=== PATIENT | male | born 1935 | race Caucasian/White ===

== ENCOUNTER 2018-03-24 23:35 | Emergency (ER) | payer MEDICARE ==
[2018-03-25 00:31] VITALS: O2SAT 98
--- NOTE | 2018-03-25 00:39 | ERPHSYRPT ---
- History of Present Illness Time Seen by Provider: 03/24/18 23:45 Source: patient, family Patient Subjective Stated Complaint: pt is alert and oriented. pt is ambulatory with a steady gait. pt comes in with c/o coughing up blood. pt was just at [facility] ER for blood work per Dr. Dickerson. pt states that on his way home from [facility] he began coughing up blood. pt lung sounds are coarse and crackley in bases posterior bilat. middle lobe crackly and coarse posterior right side. pt upper lobes coarse. pt is on 3L O2 NC at all times. Triage Nursing Assessment: see above Physician History: 82 y/o white male presents h/o oxygen dependent copd with 3 episodes of small hemoptysis this pm. just prior to this evaluation and prior to the hemoptysis, pt was at [facility] obtaining outpt cxr, cbc, and cmp. pt left there, went to eat then went home when he had two episodes of small hemoptysis. i reviewed the pts lab work and cxr from [facility]. no sig abnormalities. pt started on both metoprolol and xarelto 3 days ago. pt denies cp, he denies abd pain and his soa is no diff than usual. pt is 97-98 % o2 sat on his usual 3 liters nc. Timing/Duration: today Cough Quality/Degree: mild, blood streaked sputum Possible Cause: unknown cause (possible new med xarelto) Associated Symptoms: denies symptoms, No fever, No chills, No chest pain/ soreness, No cough, No dizziness, No earache, No facial pain, No headache, No lightheadedness, No muscle aches, No nasal congestion, No nasal drainage, No shortness of breath, No sinus infection, No sore throat, No wheezing Allergies/Adverse Reactions: No Known Drug Allergies Allergy (Unverified 03/25/18 00:39) Home Medications: Albuterol 2.5 mg/3 ml Neb [Proventil 2.5 mg/3 ml Neb] 2.5 mg IH BID [History] Alprazolam [Xanax] 0.5 mg PO HS 03/25/18 [History] Aspirin EC 81 mg [Ecotrin 81 mg] 81 mg PO DAILY 03/25/18 [History] Budesonide/Formoterol Fumarate [Symbicort 160-4.5 Mcg Inhaler] 10.2 gm IH DAILY 03/25/18 [History] Bumetanide 2 mg PO DAILY 03/25/18 [History] Buspirone HCl [Buspar] 10 mg PO BID 03/25/18 [History] Cilostazol 100 mg [Pletal 100 MG] 100 mg PO DAILY 03/25/18 [History] Famotidine 20 mg [Pepcid 20 MG] 20 mg PO HS 03/25/18 [History] Finasteride 5 mg [Proscar 5 MG] 5 mg PO HS 03/25/18 [History] Losartan Potassium 50 mg [Cozaar 50 MG] 20 mg PO HS 03/25/18 [History] Metoprolol Succinate 50 mg PO HS 03/25/18 [History] [place]-3/Dha/Epa/Fish Oil [Fish Oil 1,000 mg Softgel] 1,000 mg PO HS 03/25/18 [ History] Potassium Chloride [Klor-Con 10] 10 meq PO DAILY 03/25/18 [History] Pravastatin Sodium 40 mg PO HS 03/25/18 [History] Pyridoxine HCl 100 mg [Vitamin B-6 (Pyridoxine) 100 MG] 100 mg PO DAILY [History] Rivaroxaban [Xarelto] 10 mg PO DAILY 03/25/18 [History] Tamsulosin HCl 0.4 mg [Flomax 0.4 MG] 0.4 mg PO HS 03/25/18 [History] Immunizations Up to Date: Yes - Review of Systems Constitutional: No Symptoms, No Fever, No Chills Eyes: No Symptoms Ears, Nose, & Throat: No Symptoms Respiratory: Other (hemoptysis), No Dyspnea, No Stridor, No Wheezing Cardiac: No Symptoms, No Chest Pain, No Palpitations, No Syncope Abdominal/Gastrointestinal: No Symptoms, No Abdominal Pain, No Nausea, No Vomiting, No Diarrhea Genitourinary Symptoms: No Symptoms, No Frequency, No Hematuria Musculoskeletal: No No Symptoms Skin: No Symptoms Neurological: No Symptoms Psychological: No Symptoms Endocrine: No Symptoms Hematologic/Lymphatic: No Symptoms Immunological/Allergic: No Symptoms All Other Systems: Reviewed and Negative - Past Medical History Pertinent Past Medical History: Yes Neurological History: Stroke ENT History: No Pertinent History Cardiac History: Myocardial Infarction ([place]) Respiratory History: COPD Endocrine Medical History: No Pertinent History Musculoskeletal History: No Pertinent History GI Medical History: No Pertinent History History: No Pertinent History Psycho-Social History: No Pertinent History Male Reproductive Disorders: No Pertinent History - Past Surgical History Past Surgical History: Yes Neuro Surgical History: No Pertinent History Cardiac: Cardiac Catheterization, Cardiac Stent Respiratory: No Pertinent History Gastrointestinal: Other Genitourinary: No Pertinent History Musculoskeletal: No Pertinent History Male Surgical History: No Pertinent History Other Surgical History: 5 stents, and hemorrhoidectomy. - Social History Smoking Status: Former smoker Drug Use: none - Nursing Vital Signs Nursing Vital Signs: Initial Vital Signs Temperature 97.7 F 03/24/18 23:36 Pulse Rate 76 03/24/18 23:36 Respiratory Rate 24 03/24/18 23:36 Blood Pressure 158/99 03/24/18 23:36 O2 Sat by Pulse Oximetry 93 L 03/24/18 23:36 Pain Scale Pain Intensity 0 - Physical Exam General Appearance: no apparent distress, alert, anxiety Eye Exam: PERRL/EOMI, eyes nml inspection Ears, Nose, Throat Exam: normal ENT inspection, moist mucous membranes Neck Exam: normal inspection, non-tender, supple, full range of motion Respiratory Exam: normal breath sounds, lungs clear, airway intact, No chest tenderness, No respiratory distress, No diminished breath sounds, No accessory muscle use, No rhonchi, No wheezing, No stridor Cardiovascular Exam: regular rate/rhythm, normal heart sounds, normal peripheral pulses Gastrointestinal/Abdomen Exam: soft, normal bowel sounds, No tenderness, No guarding, No rebound Rectal Exam: not done Back Exam: normal inspection, normal range of motion, No CVA tenderness, No vertebral tenderness Extremity Exam: normal inspection, normal range of motion, pelvis stable Neurologic Exam: alert, oriented x 3, cooperative, penology teacher II-XII nml as tested SpO2: 98 Oxygen Delivery: Nasal Cannula - Course Nursing assessment & vital signs reviewed: Yes Ordered Tests: Active Orders 24 hr Category Date Time Status Orthostatic Vital Signs STAT Care 03/25/18 00:40 Active CBC W DIFF Stat Lab 03/25/18 00:50 Completed PT INR [PROTIME WITH INR] Stat Lab 03/25/18 00:50 Received Lab/Rad Data: Laboratory Result Diagrams 03/25/18 00:50 Laboratory Results 03/25/18 Range/Units 00:50 WBC 6.9 (4.0-10.5) K/mm3 RBC 3.95 L (4.1-5.6) M/mm3 Hgb 13.3 (12.5-18.0) gm/dl Hct 39.4 L (42-50) % MCV 99.7 (78-100) fl MCH 33.6 H (26-32) pg MCHC 33.8 (32-36) g/dl RDW 14.2 H (11.5-14.0) % Plt Count 86 L (150-450) K/mm3 MPV 10.4 H (6-9.5) fl Gran % 75.5 H (36.0-66.0) % Eos # (Auto) 0.31 (0-0.5) Absolute Lymphs (auto) 0.88 L (1.0-4.6) Absolute Monos (auto) 0.49 (0.0-1.3) Lymphocytes % 12.8 L (24.0-44.0) % Monocytes % 7.1 (0.0-12.0) % Eosinophils % 4.5 (0.00-5.0) % Basophils % 0.1 (0.0-0.4) % Absolute Granulocytes 5.20 (1.4-6.9) Basophils # 0.01 (0-0.4) - Progress Progress: re-examined, unchanged Air Movement: good Blood Culture(s) Obtained: No Antibiotics given: No Counseled pt/family regarding: lab results, diagnosis, need for follow-up - Departure Time of Disposition: 01:11 Departure Disposition: Home Clinical Impression: Hemoptysis, unspecified Condition: Stable Critical Care Time: No Referrals: YESSICA GUAMAN MD [Primary Care Provider] - Additional Instructions: stop xarelto and metoprolol. call your [facility] surgeon this morning for further instructions on when/if to begin xarelto and metoprolol
[2018-03-25 00:56] LABS: BASOPHIL % 0.1 % (0.0-0.4); Basophil (Absolute #) 0.01 (0-0.4); Eosinophil % 4.5 % (0.00-5.0); Eosinophil (Absolute #) 0.31 (0-0.5); Granulocytes % 75.5 % (36.0-66.0); Hematocrit 39.4 % (42-50); Hemoglobin 13.3 gm/dl (12.5-18.0); Lymphocyte (Absolute #) 0.88 (1.0-4.6); Lymphocytes % 12.8 % (24.0-44.0); Mean Cell Volume 99.7 fl (78-100); Mean Corpuscular Hemoglobin 33.6 pg (26-32); Mean Corpuscular Hgb Concent. 33.8 g/dl (32-36); Mean Platelet Volume 10.4 fl (6-9.5); Monocyte (Absolute #) 0.49 (0.0-1.3); Monocytes % 7.1 % (0.0-12.0); Platelet Count 86 K/mm3 (150-450); Red Blood Count 3.95 M/mm3 (4.1-5.6); Red Cell Distribution Width 14.2 % (11.5-14.0); White Blood Count 6.9 K/mm3 (4.0-10.5)
[2018-03-25 01:04] LABS: INR 1.38 (0.8-3.0)
[2018-03-25 01:08] VITALS: BP 150/103; PULSE 81
[2018-03-25 04:31] LABS: Slide Review 1 YES
== END 2018-03-25 01:15 | disposition home or self-care (01) ==
LOC: ED 23:35
DX: R04.2 Hemoptysis (principal); J44.9 Chronic obstructive pulmonary disease, unspecified; Z99.81 Dependence on supplemental oxygen; Z79.899 Other long term (current) drug therapy
CPT/HCPCS: 36415; 85025; 85610; 93005; 93041; 99284

== ENCOUNTER 2019-01-05 12:42 | Emergency (ER) | payer MEDICARE ==
[2019-01-05] MEDS ORDERED: Sodium Chloride 0.9% 1000 ML 1,000 ML IV SCH (13:15)
[2019-01-05] MEDS ORDERED: Sodium Chloride 0.9% 1000 ML 1,000 ML ONE (13:18)
--- NOTE | 2019-01-05 13:37 | ERPHSYRPT ---
- History of Present Illness Time Seen by Provider: 01/05/19 13:00 Source: patient Exam Limitations: clinical condition Patient Subjective Stated Complaint: states felt dizzy and passed out yesterday at 1530 at home in the kitchen. states she immediatley went to him and he was awake and was able to get up from floor. had abrasion to left side of forehead, pain in left arm, and skin tear to 5th digit left hand. denies headache. Triage Nursing Assessment: ambulated to room per self. skin w/d, color normal, resp easy. pain to left arm with movement. good left radial pulse. normal cap refill. small skin flap noted to left hand 5th digit. abrasion noted to left forehead. a/o times four. Physician History: PATIENT WITH A HISTORY OF HYPERTENSION, COPD, WITH HOME OXYGEN, BECAME DIZZY YESTERDAY UPON STANDING FELL AND STRUCK THE LEFT SIDE OF HIS HEAD. HE DENIED LOSS OF CONSCIOUSNESS, COMPLAINED OF TRANSIENT VISUAL CHANGES AFTER FALL. HE ALSO SUSTAINED SKIN TEAR TO LEFT RING FINGER. DENIES HEADACHE, NECK PAIN, NUMBNESS, TINGLING OR WEAKNESS IN EXTREMITIES. Occurred: yesterday Reason for Fall: became dizzy Injuries/Pain Location: head Loss of Consciousness: dazed Severity of Pain-Max: none Severity of Pain-Current: none Modifying Factors: Improves With: nothing Associated Symptoms (Fall): other (SKIN TEAR LEFT RING FINGER) Allergies/Adverse Reactions: No Known Drug Allergies Allergy (Verified 01/05/19 13:22) Home Medications: Albuterol 2.5 mg/3 ml Neb [Proventil 2.5 mg/3 ml Neb] 2.5 mg IH BID [History] Alprazolam [Xanax] 0.5 mg PO HS 03/25/18 [History] Aspirin EC 81 mg [Ecotrin 81 mg] 81 mg PO DAILY 03/25/18 [History] Budesonide/Formoterol Fumarate [Symbicort 160-4.5 Mcg Inhaler] 10.2 gm IH DAILY 03/25/18 [History] Bumetanide 2 mg PO DAILY 03/25/18 [History] Buspirone HCl [Buspar] 10 mg PO BID 03/25/18 [History] Cilostazol 100 mg [Pletal 100 MG] 100 mg PO DAILY 03/25/18 [History] Famotidine 20 mg [Pepcid 20 MG] 20 mg PO HS 03/25/18 [History] Finasteride 5 mg [Proscar 5 MG] 5 mg PO HS 03/25/18 [History] Metoprolol Succinate 50 mg PO HS 03/25/18 [History] Potassium Chloride [Klor-Con 10] 10 meq PO DAILY 03/25/18 [History] Pravastatin Sodium 40 mg PO HS 03/25/18 [History] Tamsulosin HCl 0.4 mg [Flomax 0.4 MG] 0.4 mg PO HS 03/25/18 [History] Clopidogrel Bisulfate [Clopidogrel] 75 mg PO HS 01/05/19 [History] Hx Tetanus, Diphtheria Vaccination/Date Given: No Hx Influenza Vaccination/Date Given: Yes Hx Pneumococcal Vaccination/Date Given: Yes Immunizations Up to Date: No - Review of Systems Constitutional: No Fever, No Chills Eyes: No Symptoms Ears, Nose, & Throat: No Symptoms Respiratory: No Symptoms, No Cough, No Dyspnea Cardiac: No Symptoms, No Chest Pain, No Edema, No Syncope Abdominal/Gastrointestinal: No Symptoms, No Abdominal Pain, No Nausea, No Vomiting, No Diarrhea Genitourinary Symptoms: No Symptoms, No Dysuria Musculoskeletal: Injury, No Back Pain, No Neck Pain Skin: No Rash Neurological: Dizziness, Other (STRUCK HEAD ONTO FLOOR), No Focal Weakness, No Sensory Changes Psychological: No Symptoms Endocrine: No Symptoms All Other Systems: Reviewed and Negative - Past Medical History Pertinent Past Medical History: Yes Neurological History: Stroke ENT History: No Pertinent History Cardiac History: Arrhythmia, Myocardial Infarction ([place]) Respiratory History: COPD Endocrine Medical History: No Pertinent History Musculoskeletal History: No Pertinent History GI Medical History: No Pertinent History History: No Pertinent History Psycho-Social History: No Pertinent History Male Reproductive Disorders: No Pertinent History - Past Surgical History Past Surgical History: Yes Neuro Surgical History: No Pertinent History Cardiac: Cardiac Catheterization, Cardiac Stent Respiratory: No Pertinent History Gastrointestinal: Other Genitourinary: No Pertinent History Musculoskeletal: No Pertinent History Male Surgical History: No Pertinent History Other Surgical History: 5 stents, and hemorrhoidectomy, watchman procedure ( filter in heart for a-fib) - Social History Smoking Status: Former smoker Exposure to second hand smoke: No Drug Use: none Patient Lives Alone: No - Nursing Vital Signs Nursing Vital Signs: Initial Vital Signs Temperature 97.8 F 01/05/19 12:46 Pulse Rate 69 01/05/19 12:46 Respiratory Rate 16 01/05/19 12:46 Blood Pressure 140/78 01/05/19 12:46 O2 Sat by Pulse Oximetry 98 01/05/19 12:46 Pain Scale Pain Intensity 4 - Blu Coma Score Best Eye Response ([place]): (4) open spontaneously Best Verbal Response (Blu): (5) oriented Best Motor Response (Blu): (6) obeys commands [place] Total: 15 - Physical Exam Head Injury: contusions, ecchymosis (THERE IS 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) Eye Exam: PERRL/EOMI ENT Exam: airway nml, evidence of ENT injury Neck Exam: supple, trachea midline (THERE IS NO POSTERIOR CERVICAL SPINAL TENDERNESS) Respiratory/Chest Exam: normal breath sounds Cardiovascular Exam: normal heart sounds, regular rate/rhythm Gastrointestinal Exam: soft, normal bowel sounds Back Exam: normal inspection, normal range of motion Extremity Exam: other (SUPERFICIAL AVULSION LACERATION 1CM X 2CM PROXIMAL PHALANGX LEFT 4TH DIGIT ULNAR ASPECT, FULL RANGE OF MOTION MCP, PIP AND DIP JOINT) Peripheral Pulses: carotid (R): 2+, carotid (L): 2+, femoral (R): 2+, femoral (L ): 2+, dorsalis-pedis (R): 2+ Skin Exam: normal color SpO2 Interpretation: normal SpO2: 98 - Course EKG Interpreted by Me: RATE, Sinus Rhythm, Sinus Gary, NORMAL AXIS, Left [place]verse Deviation (RATE OF 57) - CT Exams Head CT Interpretation: Discussed w/radiologist (NONACUTE SENILE BRAIN.NO EVIDENCE OF HEMORRHAGE, MASS OR EDEMA) Ordered Tests: Active Orders 24 hr Category Date Time Status Personal Attendant STAT Care 01/05/19 13:12 Active EKG-ER Only STAT Care 01/05/19 13:12 Active IV Insertion STAT Care 01/05/19 13:12 Active Orthostatic Vital Signs STAT Care 01/05/19 13:12 Active Wound Care Routine Care 01/05/19 13:09 Active HEAD WITHOUT CONTRAST [CT] Stat Exams 01/05/19 13:10 Ordered CBC W DIFF Stat Lab 01/05/19 13:09 Ordered CMP Stat Lab 01/05/19 13:09 Ordered PROTIME WITH INR Stat Lab 01/05/19 13:09 Ordered UA W/RFX UR CULTURE Stat Lab 01/05/19 13:10 Ordered Medication Summary Generic Name Dose Route Start Last Admin Trade Name Katheryn PRN Reason Stop Dose Admin Sodium Chloride 1,000 mls @ 100 mls/hr 01/05/19 13:15 Sodium Chloride 0.9% 1000 Ml IV 02/04/19 13:14 .Q10H JUSTIN - Progress Counseled pt/family regarding: lab results, diagnosis, need for follow-up, rad results - Departure Departure Disposition: Home Clinical Impression: SYNCOPE, LEFT TEMPORAL SCALP CONTUSION Condition: Stable Critical Care Time: No Referrals: YESSICA GUAMAN MD [Primary Care Provider] - Additional Instructions: FOLLOW HEAD INJURY INSTRUCTIONS. APPLY ICE OVER SCALP SWELLING EVERY 4 HOURS, 30 MINUTES FOR 48 HOURS, APPLY BACITRACIN OINTMENT OVER SKIN TEAR WITH BANDAID 2-3 TIMES DAILY NEEDED. WATCH FOR SIGNS OF INFECTION, REDNESS, SWELLING OR DRAINAGE.
[2019-01-05 13:40] LABS: Basophil (Absolute #) 0 (0-0.4); Eosinophil % 0.4 % (0.00-5.0); Eosinophil (Absolute #) 0.05 (0-0.5); Granulocyte Absolute (ANC) 10.49 (1.4-6.9); Granulocytes % 89.3 % (36.0-66.0); Hematocrit 46.4 % (42-50); Hemoglobin 14.9 gm/dl (12.5-18.0); Lymphocyte (Absolute #) 0.58 (1.0-4.6); Lymphocytes % 4.9 % (24.0-44.0); Mean Cell Volume 101.3 fl (78-100); Mean Corpuscular Hemoglobin 32.5 pg (26-32); Mean Corpuscular Hgb Concent. 32.1 g/dl (32-36); Mean Platelet Volume 10.8 fl (6-9.5); Monocyte (Absolute #) 0.63 (0.0-1.3); Monocytes % 5.4 % (0.0-12.0); Platelet Count 88 K/mm3 (150-450); Red Blood Count 4.58 M/mm3 (4.1-5.6); Red Cell Distribution Width 14.6 % (11.5-14.0); White Blood Count 11.8 K/mm3 (4.0-10.5)
[2019-01-05 13:44] LABS: INR 1.08 (0.8-3.0); PROTIME 12.2 SECONDS (8.83-12.87)
[2019-01-05 13:48] LABS: ALBUMIN 3.9 g/dL (3.5-5.0); ALKALINE PHOSPHATASE 50 U/L (38-126); ANION GAP 10.9 MEQ/L (5-15); BLOOD UREA NITROGEN 33 mg/dL (9-20); CHLORIDE 96 mmol/L (98-107); Calcium 9.7 mg/dL (8.4-10.2); Carbon Dioxide 36 mmol/L (22-30); Creatinine 1 1.05 mg/dL (0.66-1.25); Glucose 113 mg/dL (74-106); Potassium 4.4 mmol/L (3.5-5.1); SGOT/AST 41 U/L (17-59); SGPT/ALT 78 U/L (0-50); SODIUM 138 mmol/L (137-145); Total Protein 6.4 g/dL (6.3-8.2)
--- NOTE | 2019-01-05 13:55 | XRAY ---
Indication: Syncope. Head injury one day earlier with left frontal laceration. Multiple contiguous axial images obtained through the head without contrast. Comparison: None Age-appropriate global atrophy and mild periventricular degenerative micro-ischemia bilaterally. No acute intracranial hemorrhage, abnormal extra-axial fluid collection, or mass effect. Fourth ventricle is midline without hydrocephalus. Bony calvarium intact. Visualized paranasal sinuses are clear. Partial opacification of the left mastoid air cells. Debris/cerumen in both external auditory canals. Impression: 1. Nonacute senile brain. 2. Partial opacification left mastoid air cells presumed inflammatory. 3. Bilateral external auditory canal debris/cerumen. CT DI 47.89
[2019-01-05] MEDS ORDERED: BACIGUENT PACKET TP ONE (14:19)
[2019-01-05 14:21] LABS: Appearance CLEAR (CLEAR); Bilirubin NEGATIVE (NEGATIVE); Blood NEGATIVE Ery/ul (0-5); Glucose NEGATIVE (NEGATIVE); Ketones NEGATIVE (NEGATIVE); Leukocyte Esterase NEGATIVE (NEGATIVE); Nitrite NEGATIVE (NEGATIVE); Protein,Urine Dip NEGATIVE (Negative); Specific Gravity 1.004 (1.005-1.025); Urobilinogen NEGATIVE mg/dL (0-1)
[2019-01-05 15:04] VITALS: BP 132/68; PULSE 68; O2SAT 97
== END 2019-01-05 15:04 | disposition home or self-care (01) ==
LOC: ED 12:42
DX: R55 Syncope and collapse (principal); S00.03XA Contusion of scalp, initial encounter; S00.83XA Contusion of other part of head, initial encounter; W22.09XA Striking against other stationary object, initial encounter; R58 Hemorrhage, not elsewhere classified; Z79.899 Other long term (current) drug therapy; J44.9 Chronic obstructive pulmonary disease, unspecified; Z86.73 Personal history of transient ischemic attack (TIA), and cerebral infarction without residual deficits; S61.215A Laceration without foreign body of left ring finger without damage to nail, initial encounter
CPT/HCPCS: 36000; 36415; 70450; 80053; 81001; 85025; 85610; 93005; 93041; 96360; 99284; A9270-GY

== ENCOUNTER 2020-06-24 18:17 | Emergency (ER) | payer MEDICARE ==
--- NOTE | 2020-06-24 18:44 | ERPHSYRPT ---
<LISETH WALKER - Last Filed: 06/24/20 18:39> - History of Present Illness Time Seen by Provider: 06/24/20 18:30 Historian: patient Exam Limitations: no limitations Physician History: Is an 84-year-old white male patient of Dr. Guaman. Patient was notified today because he had an elevated D-dimer of 1327. Patient has been having increasing s hortness of breath over the last couple weeks. Patient has a history of COPD as well as coronary artery disease, coronary artery stents as well as arrhythmia. Patient is on Plavix. Patient has had a history of stroke in the past as well. Patient's director of corporate sponsorships is Dr. Patiño his motor vehicle compliance analyst is Dr. Castro. Patient was notified today of the abnormally elevated D-dimer. He was told to come to the emergency department for further evaluation. Patient had a white count of 9.9 and hemoglobin 14.7. He had a GFR of 44.5. His troponin was in the normal range at 0.024. These laboratory results are from blood that was drawn at 1628 this afternoon. He describes the chest pain as sharp with radiating to his back between his shoulders. Location: substernal Chest Pain Radiation: back (Between the shoulders) Severity of Pain-Max: moderate Severity of Pain-Current: moderate Modifying Factors: Improves With: nothing Associated Symptoms: shortness of breath Prior Chest Pain/Cardiac Workup: cardiac cath, echocardiography, heart attack Nitro Today/Relief: no nitro taken today Aspirin Treatment Today: no aspirin today (Patient is on Plavix) Allergies/Adverse Reactions: No Known Drug Allergies Allergy (Verified 06/24/20 18:35) Home Medications: Albuterol 2.5 mg/3 ml Neb [Proventil 2.5 mg/3 ml Neb] 2.5 mg IH BID 03/25/18 [History] Alprazolam [Xanax] 0.5 mg PO HS 03/25/18 [History] Aspirin EC 81 mg [Ecotrin 81 mg] 81 mg PO DAILY 03/25/18 [History] Budesonide/Formoterol Fumarate [Symbicort 160-4.5 Mcg Inhaler] 10.2 gm IH DAILY 03/25/18 [History] Bumetanide 2 mg PO BID 03/25/18 [History] Buspirone HCl [Buspar] 10 mg PO BID 03/25/18 [History] Finasteride 5 mg [Proscar 5 MG] 5 mg PO HS 03/25/18 [History] Metoprolol Succinate 25 mg PO BID 03/25/18 [History] Potassium Chloride [Klor-Con 10] 10 meq PO DAILY 03/25/18 [History] Pravastatin Sodium 40 mg PO HS 03/25/18 [History] Tamsulosin HCl 0.4 mg [Flomax 0.4 MG] 0.4 mg PO HS 03/25/18 [History] Sildenafil Citrate [Sildenafil] 20 mg PO TID 06/24/20 [History] Hx Tetanus, Diphtheria Vaccination/Date Given: No Hx Influenza Vaccination/Date Given: Yes Hx Pneumococcal Vaccination/Date Given: Yes Travel Risk - International Travel Have you traveled outside of the country in past 3 weeks: No - Coronavirus Screening Are you exhibiting any of the following symptoms?: No Close contact with a COVID-19 positive Pt in past 14-21 Days: No - Review of Systems Constitutional: No Symptoms Eyes: No Symptoms Ears, Nose, & Throat: No Symptoms Respiratory: Dyspnea (Mild) Cardiac: Chest Pain Abdominal/Gastrointestinal: No Symptoms Genitourinary Symptoms: No Symptoms Musculoskeletal: No Symptoms Skin: No Symptoms Neurological: No Symptoms Psychological: No Symptoms Endocrine: No Symptoms Hematologic/Lymphatic: No Symptoms Immunological/Allergic: No Symptoms All Other Systems: Reviewed and Negative - Past Medical History Pertinent Past Medical History: Yes Neurological History: Stroke ENT History: No Pertinent History Cardiac History: Arrhythmia, Myocardial Infarction ([place]) Respiratory History: COPD Endocrine Medical History: No Pertinent History Musculoskeletal History: No Pertinent History GI Medical History: No Pertinent History History: No Pertinent History Psycho-Social History: No Pertinent History Male Reproductive Disorders: No Pertinent History - Past Surgical History Past Surgical History: Yes Neuro Surgical History: No Pertinent History Cardiac: Cardiac Catheterization, Cardiac Stent Respiratory: No Pertinent History Gastrointestinal: Other Genitourinary: No Pertinent History Musculoskeletal: No Pertinent History Male Surgical History: No Pertinent History Other Surgical History: 5 stents, and hemorrhoidectomy, watchman procedure (filter in heart for a-fib) - Social History Smoking Status: Former smoker Exposure to second hand smoke: No Drug Use: none Patient Lives Alone: No - Physical Exam General Appearance: mild distress, alert, anxiety Eye Exam: PERRL/EOMI, eyes nml inspection Ears, Nose, Throat Exam: normal ENT inspection, moist mucous membranes Neck Exam: normal inspection, non-tender, supple, full range of motion Respiratory Exam: normal breath sounds, chest tenderness, lungs clear, airway intact, No respiratory distress Cardiovascular Exam: regular rate/rhythm, normal heart sounds, normal peripheral pulses, edema (Bilateral feet and ankles) Gastrointestinal/Abdomen Exam: soft, normal bowel sounds, No tenderness Rectal Exam: not done Back Exam: normal inspection, normal range of motion, No CVA tenderness, No vertebral tenderness Extremity Exam: normal range of motion, pelvis stable, pedal edema (Bilateral feet and ankles) Neurologic Exam: alert, oriented x 3, cooperative, rotary shear operator II-XII nml as tested, normal mood/affect, nml cerebellar function, nml station & gait, sensation nml Skin Exam: normal color, warm, dry Lymphatic Exam: No adenopathy SpO2 Interpretation: normal SpO2: 99 O2 Delivery: Nasal Cannula (3 L nasal cannula) - Course Nursing assessment & vital signs reviewed: Yes EKG Interpreted by Me: RATE (78), Sinus Rhythm, NORMAL AXIS, LAFB, NORMAL INTERVALS, NORMAL QRS, Right Bundle Branch Block, Other (There are no acute ischemic changes on this EKG. When compared to EKG dated 01/05/2019 there is persistent left anterior fascicular block and a new incomplete right bundle branch block.) - Progress Progress: re-examined Air Movement: good Progress Note: 06/24/20 18:47 Patient is being signed out to Dr. Aguirre at shift change. I reviewed the patient's history, condition, EKG findings. I also reviewed some of the lab results that are back and gave him a list of lab results that are pending. He will make the final disposition of this patient. Blood Culture(s) Obtained: No Antibiotics given: No Counseled pt/family regarding: lab results, diagnosis, rad results - Departure Departure Disposition: Transfer Clinical Impression: Chest pain, Emphysema of lung, Hiatal hernia, Lung granuloma, Renal cyst, Gynecomastia Condition: Stable Critical Care Time: No Referrals: YESSICA GUAMAN MD [Primary Care Provider] - Instructions: Chronic Obstructive Pulmonary Disease Additional Instructions: Discharge/Care Plan CINDYRAMO GAGNON was seen on 06/24/20 in the Emergency Room. The patient was counseled regarding Diagnosis,Lab results, Imaging studies, need for follow up and when to return to the Emergency Room. Prescriptions given: Discharge Note I have spoken with the patient and/or caregivers. I have explained the patient's condition, diagnosis and treatment plan based on the information available to me at this time. I have answered the patient's and/or caregiver's questions and addressed any concerns. The patient and/or caregivers have as good understanding of the patient's diagnosis, condition and treatment plan as can be expected at this point. The vital signs have been stable. The patient's condition is stable and appropriate for discharge from the emergency department. The patient will pursue further outpatient evaluation with the primary care physician or other designated or consulting physician as outlined in the discharge instructions. The patient and/or caregivers are agreeable to this plan of care and follow-up instructions have been explained in detail. The patient and/or caregivers have received these instruction. The patient/and or caregivers are aware that any significant change in condition or worsening of symptoms should prompt an immediate return to this or the closest emergency department or call 911. <ROSENDO AGUIRRE - Last Filed: 06/24/20 23:25> - Nursing Vital Signs Nursing Vital Signs: Initial Vital Signs Temperature 97.6 F 06/24/20 18:30 Pulse Rate 82 06/24/20 18:30 Respiratory Rate 22 06/24/20 18:30 Blood Pressure 131/74 06/24/20 18:30 O2 Sat by Pulse Oximetry 99 06/24/20 18:30 Pain Scale Pain Intensity 5 - Radiology Exams Chest X-ray Interpretation: Interpreted by me (X-ray negative for acute findings. Ch anges consistent with emphysema observed. No consolidation or infiltrate.) Ordered Tests: Active Orders 24 hr Category Date Time Status Cable Tower Operator STAT Care 06/24/20 18:50 Active EKG-ER Only STAT Care 06/24/20 18:49 Active IV Insertion STAT Care 06/24/20 18:49 Active Oxygen-ED Only Nasal Cannula 3 lpm Care 06/24/20 18:49 Active CHEST 1 VIEW (PORTABLE) Stat Exams 06/24/20 18:49 Taken CHEST WITH CONTRAST [CT] Stat Exams 06/24/20 21:38 Taken BMP Stat Lab 06/24/20 20:34 Completed BNP [NT PRO BNP] Stat Lab 06/24/20 18:40 Completed TROPONIN Q3H Lab 06/24/20 18:40 Completed TROPONIN Q3H Lab 06/24/20 20:34 Completed TROPONIN Q3H Lab 06/25/20 01:00 Ordered TROPONIN Q3H Lab 06/25/20 04:00 Ordered TROPONIN Q3H Lab 06/25/20 07:00 Ordered Medication Summary Generic Name Dose Route Start Last Admin Trade Name Freq PRN Reason Stop Dose Admin Sodium Chloride 1,000 mls @ 100 mls/hr 06/24/20 19:00 06/24/20 18:58 Sodium Chloride 0.9% 1000 Ml IV 07/24/20 18:59 100 mls/hr .Q10H JUSTIN Administration Sodium Chloride 1,000 mls @ 100 mls/hr 06/24/20 23:00 Sodium Chloride 0.9% 1000 Ml IV 07/24/20 22:59 .Q10H JUSTIN Discontinued Medications Generic Name Dose Route Start Last Admin Trade Name Freq PRN Reason Stop Dose Admin Sodium Chloride 500 mls @ 500 mls/hr 06/24/20 18:50 06/24/20 18:59 Sodium Chloride 0.9% 500 Ml IV 06/24/20 19:49 500 mls/hr .Q1H ONE Administration Sodium Chloride Confirm 06/24/20 18:56 Sodium Chloride 0.9% 500 Ml Administered 06/24/20 18:57 Dose 500 mls @ ud IV .[facility] Lab/Rad Data: Laboratory Result Diagrams 06/24/20 20:34 Laboratory Results 06/24/20 06/24/20 06/24/20 Range/Units 20:34 20:34 18:40 Sodium 138 (137-145) mmol/L Potassium 4.4 (3.5-5.1) mmol/L Chloride 93 L (98-107) mmol/L Carbon Dioxide 37 H (22-30) mmol/L Anion Gap 12.4 (5-15) MEQ/L BUN 46 H (9-20) mg/dL Creatinine 1.49 H (0.66-1.25) mg/dL Estimated GFR 47.6 ML/MIN Glucose 125 H (74-106) mg/dL Calcium 9.2 (8.4-10.2) mg/dL Troponin I 0.020 (0.000-0.034) ng/mL NT-Pro-B Natriuret Pep 546 (0-1800) pg/mL 06/24/20 Range/Units 18:40 Sodium (137-145) mmol/L Potassium (3.5-5.1) mmol/L Chloride (98-107) mmol/L Carbon Dioxide (22-30) mmol/L Anion Gap (5-15) MEQ/L BUN (9-20) mg/dL Creatinine (0.66-1.25) mg/dL Estimated GFR ML/MIN Glucose (74-106) mg/dL Calcium (8.4-10.2) mg/dL Troponin I 0.022 (0.000-0.034) ng/mL NT-Pro-B Natriuret Pep (0-1800) pg/mL - Progress Progress Note: Patient endorsed to Dr. Aguirre at approximately 7 PM. Patient currently being hydrated to increase GFR to perform CTA chest due to elevated D-dimer. We repeated blood chemistry. GFR increased from patient received 750 cc of normal saline. GFR was repeated and increased from 44 to 47.6. After discussion of risks and benefits of CTA with IV contrast due to GFR being slightly suboptimal for CTA he advised to move forward with the study. CTA was negative for PE. Revealed COPD with severe emphysematous changes. Patient is known to have COPD. Patient wears oxygen via nasal cannula at home 24 hours/day. No aortic dissection observed. Coronary artery disease. Left atrial appendage closure device. Left ventricular hypertrophy and dilation of the right ventricle and atrium. Hiatal hernia observed. Compression deformity at L1 which is likely chronic. Troponin repeated and reveals to be within normal limits and stable. We advised admission for observation and repeat labs in the morning patient declined. I spoke to Dr. Guaman patient's referring physician to our ED and he stated that he felt patient was appropriate for discharge. He stated that irena espinal's to call his office in the morning and he will arrange for outpatient labs to reassess his GFR. Patient advised to increase his fluid intake and to follow-up with as discussed. Patient currently asymptomatic. No chest pain or shortness of breath. No nausea or vomiting. Patient requesting discharge. We contacted patient's . She is on her way to pick patient up from our ED. Patient voices no other complaints or concerns at this time. 06/24/20 23:17 06/24/20 23:24 Discussed with : Other (Kelly) - Departure Departure Disposition: Home Critical Care Time: No
[2020-06-24] MEDS ORDERED: Sodium Chloride 0.9% 500 ML 500 ML IV ONE ×2 (18:50→18:56)
[2020-06-24] MEDS ORDERED: Sodium Chloride 0.9% 1000 ML 1,000 ML ONE (18:56)
[2020-06-24] MEDS ORDERED: Sodium Chloride 0.9% 1000 ML 1,000 ML IV SCH ×2 (19:00→23:00)
[2020-06-24 20:47] LABS: Calcium 9.2 mg/dL (8.4-10.2); Creatinine 1 1.49 mg/dL (0.66-1.25); EST GLOMERULAR FILTRATION RATE 47.6 ML/MIN; Potassium 4.4 mmol/L (3.5-5.1)
[2020-06-24 20:57] LABS: ANION GAP 12.4 MEQ/L (5-15)
[2020-06-24 23:39] VITALS: BP 129/77; PULSE 86; O2SAT 100
--- NOTE | 2020-06-25 09:12 | XRAY ---
Indication: Short of breath. Elevated d-dimer. Multiple contiguous axial images obtained through the chest using 80 cc Isovue 370 contrast and PE protocol. Comparison: None There is good opacification of the pulmonary arteries to include the lobar and segmental branches. No pulmonary embolus. Heart is not enlarged. Aorta demonstrates mild scattered arteriosclerotic disease without aneurysm/dissection. No pathologic mediastinal/hilar lymphadenopathy. Small hiatal hernia. Lungs demonstrates significant diffuse pulmonary emphysema with scattered fibrosis/scarring and tiny right lower lobe calcified granulomas. No suspicious pulmonary mass, infiltrate, or effusion. Bony thorax intact with osteopenia and mild/moderate degenerative changes throughout the spine. Limited upper abdomen demonstrates 4 cm left renal cyst. Impression: 1. Negative pulmonary embolus. No acute cardiopulmonary abnormalities. 2. Incidental diffuse pulmonary emphysema, small hiatal hernia, chronic bony findings, left renal cyst, and old granulomatous disease. Comment: Preliminary interpretation was made by [facility]. No critical discrepancy.
--- NOTE | 2020-06-25 09:14 | XRAY ---
Indication: Chest pain short of breath. Comparison: June 16, 2020. Portable chest unchanged again demonstrating COPD, chronic lung markings, and tiny calcified granulomas. Heart is not enlarged. Bony thorax intact again with osteopenia, degenerative changes, and anterior chest electronic monitoring device. Impression: Continued nonacute chest with chronic features.
== END 2020-06-24 23:39 | disposition home or self-care (01) ==
LOC: ED 18:17
DX: R07.9 Chest pain, unspecified (principal); J43.9 Emphysema, unspecified; K44.9 Diaphragmatic hernia without obstruction or gangrene; J84.10 Pulmonary fibrosis, unspecified; N28.1 Cyst of kidney, acquired; N62 Hypertrophy of breast; Z79.01 Long term (current) use of anticoagulants; R06.02 Shortness of breath; J44.9 Chronic obstructive pulmonary disease, unspecified; I25.2 Old myocardial infarction
CPT/HCPCS: 36000; 36415; 71045; 71260; 80048; 80053; 80061; 82550; 83721; 83880; 84443; 84484; 85025; 85379; 93005; 93041; 96360; 99285